=== PATIENT | female | born 1985 | race American Indian/Alaskan Native ===

== ENCOUNTER 2017-06-25 13:19 | Inpatient (IN) | payer MEDICAID ==
[2017-06-25 14:11] LABS: BASO % 0.3 % (0.0-2.0); EOS % 0.4 % (0.0-4.0); HEMOGLOBIN 9.9 g/dL (11.0-16.0); LYMPH # 1.8 K/uL (1.0-4.3); LYMPH % 14.2 % (20.0-40.0); MEAN CELL VOLUME 88.7 fL (81.0-99.0); MEAN CORPUSCULAR HEMOGLOBIN 30.6 pg (27.0-31.0); MEAN CORPUSCULAR HGB CONC 34.5 g/dL (33.0-37.0); MEAN PLATELET VOLUME 8.5 fL (7.2-11.7); MONO % 8.2 % (0.0-10.0); NEUT # 9.6 K/uL (1.8-7.0); NEUT % 76.9 % (50.0-75.0); RBC 3.22 Mil/uL (3.80-5.20); RED CELL DISTRIBUTION WIDTH 13.6 % (11.5-14.5); WHITE BLOOD COUNT 12.5 K/uL (4.8-10.8)
[2017-06-25 14:20] LABS: ALB/GLOB RATIO 0.9 (1.0-2.1); ALT/SGPT 20 U/L (9-52); AST/SGOT 25 U/L (14-36); BLOOD UREA NITROGEN 9 mg/dL (7-17); CALCIUM 9.1 mg/dl (8.6-10.4); GFR AFRICAN-AMERICAN > 60; GFR NON-AFRICAN AMERICAN > 60
--- NOTE | 2017-06-25 14:24 | C.PDOC ---
History Of Present Illness Pt is here requesting detox from Heroin. Time Seen by Provider: 06/25/17 13:35 Chief Complaint (Nursing): Substance Abuse History Per: Patient Onset/Duration Of Symptoms: Days Current Symptoms Are (Timing): Still Present Suicide/Self Injury Attempted (Context): None Modifying Factor(s): Narcotics Severity: Moderate Associated Symptoms: denies: Suicidal Thoughts, Suicidal Plan Additional History Per: Prior Records Past Medical History Reviewed: Historical Data, Nursing Documentation, Vital Signs Vital Signs: Last Vital Signs Temp 97.4 F L 06/25/17 18:19 Pulse 76 06/25/17 18:19 Resp 18 06/25/17 18:19 BP 99/58 L 06/25/17 18:19 Pulse Ox 98 06/25/17 18:19 - Medical History PMH: Asthma Other PMH: Pt states that she is 27 weeks Surgical History: Appendectomy Family History: States: Unknown Family Hx - Social History Hx Tobacco Use: Yes Hx Alcohol Use: No Hx Substance Use: Yes (Snorts Heroin) - Immunization History Hx Tetanus Toxoid Vaccination: No Hx Influenza Vaccination: No Hx Pneumococcal Vaccination: No Review Of Systems Except As Marked, All Systems Reviewed And Found Negative. Constitutional: Negative for: Fever Cardiovascular: Negative for: Chest Pain Respiratory: Negative for: Shortness of Breath Gastrointestinal: Negative for: Abdominal Pain Genitourinary: Negative for: Vaginal Discharge, Vaginal Bleeding Musculoskeletal: Negative for: Back Pain Skin: Negative for: Rash Neurological: Negative for: Weakness, Numbness, Seizures Physical Exam - Physical Exam Appears: Non-toxic, No Acute Distress Skin: Normal Color, Warm, Dry, No Rash Head: Atraumatic, Normacephalic Eye(s): bilateral: PERRL, EOMI Neck: Normal ROM, Supple Cardiovascular: Rhythm Regular Respiratory: Normal Breath Sounds, No Accessory Muscle Use Gastrointestinal/Abdominal: Soft, No Tenderness, Other (Gravid) Back: No CVA Tenderness Extremity: Normal ROM Neurological/Psych: Oriented x3, Normal Motor, Normal Sensation ED Course And Treatment - Laboratory Results Result Diagrams: 06/25/17 14:01 06/25/17 14:01 Interpretation Of Abnormal: Possible UTI, urine C&S sent. Urine POC: Positive O2 Sat by Pulse Oximetry: 100 Pulse Ox Interpretation: Normal - CT Scan/US OB US Other Rad Studies (CT/US): Read By Radiologist, Radiology Report Reviewed CT/US Interpretation: 28 weeks 4 days live intrauterine gestation. No acute/ significant findings identified. Progress Note: Pt is medically stable for detox admission after OB clearance. Pt has UTI. Start Macrobid 100mg po bid x 7 days. - Physician Consult Information Physician Contacted: [place] Outcome Of Conversation: She wants pt to go to L&D for monitoring, then she will be sent to Detox unit after cleared by OB. Disposition Counseled Patient/Family Regarding: Studies Performed, Diagnosis - Disposition Disposition: HOSPITALIZED Disposition Time: 18:30 Condition: STABLE - Clinical Impression Clinical Impression: Heroin dependence, 28 weeks gestation of , UTI (urinary tract infection) Decision To Admit - Pt Status Changed To: Hospital Disposition Of: Inpatient - Admit Certification Admit to Inpatient:: After my assessment, the patient will require hospitalization for at least two midnights. This is because of the severity of symptoms shown, intensity of services needed, and/or the medical risk in this patient being treated as an outpatient. - InPatient: Physician Admission Certification: I certify that this patient requires 2 or more midnights of care for the following reason:: Detox. - . Bed Request Type: Detox Admitting Physician: Teresa Caballero Patient Diagnosis: Heroin dependence, 28 weeks gestation of , UTI (urinary tract infection)
[2017-06-25 14:29] LABS: BARBITURATES, UR NEGATIVE (NEGATIVE); BENZODIAZEPINES, UR NEGATIVE (NEGATIVE); PHENCYCLIDINE, UR NEGATIVE (NEGATIVE)
[2017-06-25 14:30] LABS: OPIATES, UR POSITIVE (NEGATIVE)
[2017-06-25 14:42] LABS: HCG,QUALITATIVE URINE POSITIVE (NEGATIVE)
[2017-06-25 14:51] LABS: SQUAMOUS EPITHIAL 4 /hpf (0-5); URINE BACTERIA OCC (<OCC); URINE BILIRUBIN NEGATIVE (NEGATIVE); URINE BLOOD NEGATIVE (NEGATIVE); URINE CLARITY Hazy (Clear); URINE COLOR YELLOW (YELLOW); URINE GLUCOSE (UA) NORMAL (Normal); URINE LEUKOCYTE ESTERASE 3+ Leu/uL (Negative); URINE PROTEIN NEGATIVE (NEGATIVE)
--- NOTE | 2017-06-25 18:02 | US ---
PROCEDURE: Limited ultrasound HISTORY: . Medical clearance for detox. COMPARISON: None available. TECHNIQUE: Standard protocol for this study/examination. FINDINGS: Cephalic presentation. Anterior Placenta. No evidence of abruption or previa Gestational age derived from LMP 28 weeks. ADORE 09/17/2017. Gestational age derived from the following biometric parameters 28 weeks 4 days. ADORE 09/13/2017 Biparietal diameter 7.15 cm Head circumference 26.20 cm Abdominal circumference 24.79 cm Femur length 5.30 cm Estimated weight 1264 g Calculated cardiac rate 143 beats per min. Closed cervix measuring 3.96 cm Limited anatomic survey documents four-chamber heart, spine, stomach, renal regions, cord insertion in urinary bladder. No abnormalities are documented. . IMPRESSION: Twenty weeks 4 days live intrauterine gestation. No acute/ significant findings identified.
--- NOTE | 2017-06-25 19:24 | CP.PCM.PN ---
Subjective - Date & Time of Evaluation Date of Evaluation: 06/25/17 Time of Evaluation: 19:21 - Subjective Subjective: 32 y/o at 28 wks by LMP confirmed by US today presents for Detoxification of IV drugs ( Heroin and Cocaine). Pt received poor PNC at [facility]. No c/o CTX, VB or LOF. Good movements. pt admits to admisistration of Heroin last night. LMP- 12/25/16 EDC: 09/17/17, confirmed by today's US. PMH: [place] Social H: h/O Smoking OBG: x4 No complications. Objective - Vital Signs/Intake and Output Vital Signs (last 24 hours): Temp Pulse Resp BP Pulse Ox 97.4 F L 76 18 99/58 L 100 06/25/17 18:19 06/25/17 18:19 06/25/17 18:19 06/25/17 18:19 06/25/17 18:31 - Labs Labs: 06/25/17 14:01 06/25/17 14:01 - Constitutional Appears: No Acute Distress, Unkempt, Older Than Stated Age - Additional Findings Additional findings: ABD: Soft, NT TOCO: No CTX EFM: 150bpm + 10x10 , No delearations. Assessment and Plan - Assessment and Plan (Free Text) Assessment: 32 y/o at 28.4 wks with Heroin abuse with no OB concerns at this time Cleared by OB hospitalist Poor PNC Heroin use UTI Anemia Plan: Admit to Psychiatry for detoxification as palnned by the ER Macrobid 500 mg PO BID for 5-7 days for UTI Ferrous sulfate 325 mg Po Daily for Anemia Obtain OB records from [facility] if pt had any PNC MFM consultation/ Level 2 US on Wednesday and need [facility] for OB f/u once discharged Daily NST- will be done by L&D nurse Type and screen/HIV/Hepatitis panel/RPR
--- NOTE | 2017-06-25 20:06 | PCM.BM ---
Treatment Plan Problems - Problems identified on initial assessmt potential for opiate withdrawal Date Initiated: 06/25/17 Time Initiated: 20:05 Status: Active Treatment assets and liabiliti Patient Assests: cooperative, ADL independent, cognitively intact Patient Liabilities: substance abuse, medical problems - Milieu Protocol Maintain good personal hygiene: daily Encourage regular showers, daily Remind patient to perform daily oral care, daily Assist patient to perform ADL's Conduct patient checks and document Observation sheet: Q15 minutes Maintain personal safety: every shift Educate patient to report safety concerns to staff, every shift Monitor environment for contraband/sharps Medication safety: Monitor for expected outcome, potential side effects: every shift, Assess barriers to learning: every shift, Assess readiness for medication education: every shift
[2017-06-25 20:13] VITALS: TEMP 98.3
[2017-06-25] MEDS ORDERED: Albuterol HFA 90 mcg/actuation (8 g) INH PRN (20:47)
[2017-06-25 20:52] VITALS: BP 104/61; RESP 18
[2017-06-25 22:24] VITALS: PULSE 81; O2SAT 97
--- NOTE | 2017-06-26 00:05 | PCM.PYCHPN ---
Psychiatric Progress Note - Psychiatric Progress Note Patient seen today, length of contact: 0 MINUTES Problems Identified/Issues Discussed: No face to face conversation was done with this provider. Per Chart review and canceling machine operator report: Pt is 28 weeks and was admitted for opiod detoxificaton; pt was abusing 10 bags of heroin daily for the last 15 years. After medical and obgyn clearance she was admitted to Detox unit. Pt c/o opioid withdrawal symptoms after coming in-pt unit. she received 10 mg of methadone twice. However, she reported that she still had opioid withdrawal symptoms. Pt requested to leave hospital AMA. Additional Methadone was offered. Pt. was seen and evaluated by the on-call resident. On-Call resident discussed benefits and risks of treatment and discontinuation of treatment including but not limited to withdrawal symptoms, relapse on opioid and early or premature delivery, etc. Psychoeducation was provided to the pt. Pt verbalized understanding and stated that she will contact nearest ER for any emergent situation. Pt left hospital AMA. DSM 5 Symptoms Update: Opioid dependence Mental Status Examination - Homicidal Ideation Homicidal Ideation: No
[2017-06-26] MEDS ORDERED: Prenatal Multivit/Folic Acid/Iron Tab PO SCH (10:00)
== END 2017-06-25 23:11 | disposition left against medical advice (07) | DRG 886 ==
LOC: C.ER 13:19 → C.7D 18:31
PROVIDERS: ADMIT Psychiatry & Neurology Psychiatry; ATTEND Psychiatry & Neurology Psychiatry
PROC: HZ91ZZZ Pharmacotherapy for Substance Abuse Treatment, Methadone Maintenance (ICD-10-PCS; principal; 2017-06-25)
DX: O99.323 Drug use complicating pregnancy, third trimester (principal); F11.23 Opioid dependence with withdrawal; O23.43 Unspecified infection of urinary tract in pregnancy, third trimester; O99.013 Anemia complicating pregnancy, third trimester; F14.10 Cocaine abuse, uncomplicated; O99.513 Diseases of the respiratory system complicating pregnancy, third trimester; B96.89 Other specified bacterial agents as the cause of diseases classified elsewhere; D64.9 Anemia, unspecified; J45.909 Unspecified asthma, uncomplicated; O09.33 Supervision of pregnancy with insufficient antenatal care, third trimester; Z3A.28 28 weeks gestation of pregnancy; Z87.891 Personal history of nicotine dependence